=== PATIENT | female | born 1955 | race Caucasian/White ===

== ENCOUNTER 2017-03-05 12:13 | Emergency (ER) | payer BC ==
[2017-03-05 12:44] VITALS: BP 124/74; PULSE 57; TEMP 98.4; BMI 22.8
--- NOTE | 2017-03-05 13:17 | PDOC ---
History of Present Illness - General Chief Complaint: Injury Stated Complaint: LEFT HAND CAUGHT IN GARAGE DOOR Time Seen by Provider: 03/05/17 12:24 - History of Present Illness Initial Comments: 03/05/17 16:10 Complaint: Hand injury History of present illness: Patient caught her left hand in a door. Complains of pain over the dorsum of the hand Review of systems: Denies any distal numbness tingling or limited motion of the fingers. Denies any other injuries. Past medical history: Noncontributory for this injury Physical exam: There is mild swelling of the dorsum of the hand, without any appreciable deformity. Pulses are full. Capillary refill is intact to all 5 digits. There is no sensory deficit to the digits and no complaint of numbness or tingling. There is full tendon function in both flexion and extension of the MCP, PIP, and DIPJs resistance. Superficial abrasions medial to the first MCP J and proximal to the fifth digit X-ray: Negative for fracture Plan: Wound scrubbed and irrigated with normal saline, dressed with bacitracin. No deep laceration or puncture was observed. Wound care discussed and follow-up with primary physician. Patient fully ambulatory and in no pain or other distress upon discharge with her to follow-up as directed Past History - Past Medical History Allergies/Adverse Reactions: Allergies Allergy/AdvReac Type Severity Reaction Status Date / Time No Known Allergies Allergy Unverified 03/05/17 12:25 Home Medications: Ambulatory Orders Aspirin [ASA -] 81 mg PO DAILY 03/05/17 Atenolol [Tenormin -] 12.5 mg PO DAILY 03/05/17 Atenolol [Tenormin] 25 mg PO DAILY 03/05/17 Atorvastatin Calcium [Lipitor] 10 mg PO DAILY 03/05/17 Vortioxetine Hydrobromide [Trintellix] 10 mg PO DAILY 03/05/17 HTN: Yes Hypercholesterolemia: Yes Psychiatric Problems: Yes (ANXIETY) - Psycho/Social/Smoking Cessation Hx Anxiety: Yes Suicidal Ideation: No Smoking History: Never smoked Hx Alcohol Use: No Drug/Substance Use Hx: No Substance Use Type: Alcohol *Physical Exam - Vital Signs Last Vital Signs Temp Pulse Resp BP Pulse Ox 98.4 F 57 L 16 124/74 100 03/05/17 12:16 03/05/17 12:16 03/05/17 12:16 03/05/17 12:16 03/05/17 12:16 ED Treatment Course - RADIOLOGY Radiology Studies Ordered: Category Date Time Status HAND- LEFT [RAD] Stat Radiology 03/05/17 12:24 Taken *DC/Admit/Observation/Transfer Diagnosis at time of Disposition: Multiple abrasions Contusion, hand Qualifiers: Encounter type: initial encounter Laterality: left Qualified Code(s): S60.222A - Contusion of left hand, initial encounter - Discharge Dispostion Disposition: HOME Condition at time of disposition: Improved Admit: No - Referrals Referrals: Yanick Olivera MD [Staff Physician] - 1 week - Patient Instructions Printed Discharge Instructions: Contusion, DI for Abrasion
[2017-03-05] MEDS ORDERED: DIPHTH,PERTUSS(ACELL),TET 0.5 ML DISP.SYRIN IM ONE (13:44)
== END 2017-03-05 14:09 | disposition home or self-care (01) ==
LOC: FER 12:13
PROC: 3E0234Z Introduction of Serum, Toxoid and Vaccine into Muscle, Percutaneous Approach (ICD-10-PCS; principal; 2017-03-05)
DX: S60.222A Contusion of left hand, initial encounter (principal); T14.8 Other injury of unspecified body region; W20.8XXA Other cause of strike by thrown, projected or falling object, initial encounter; Y93.89 Activity, other specified; Y92.89 Other specified places as the place of occurrence of the external cause; I10 Essential (primary) hypertension; F41.9 Anxiety disorder, unspecified; E78.00 Pure hypercholesterolemia, unspecified
CPT/HCPCS: 73130-TC-LT; 90715; 99282-25

== ENCOUNTER 2024-01-14 07:29 | Day surgery (SDC) | payer OTHER, BC ==
[2024-01-09 11:28] VITALS: BMI 23.3
[2024-01-14] MEDS ORDERED: MIDAZOLAM HCL 2 MG/2 ML SINGLE DOSE VIAL ONE ×2 (08:27→09:09)
[2024-01-14] MEDS ORDERED: LIDOCAINE HCL 2% (20ML MULTI-DOSE VIAL) ONE (08:38)
[2024-01-14 09:52] VITALS: RESP 20; TEMP 97.4
[2024-01-14 10:06] VITALS: BP 130/78; PULSE 80
== END 2024-01-14 10:15 | disposition home or self-care (01) ==
LOC: FASU 07:29
PROVIDERS: ATTEND Orthopaedic Surgery Hand Surgery
PROC: 0LN70ZZ Release Right Hand Tendon, Open Approach (ICD-10-PCS; principal; 2024-01-14 09:15)
DX: M65.331 Trigger finger, right middle finger (principal)

== ENCOUNTER 2025-01-09 17:26 | Emergency (ER) | payer OTHER, BC ==
[2025-01-09 17:56] VITALS: BP 158/79; PULSE 70; RESP 18; TEMP 97; BMI 23.3
== END 2025-01-09 18:20 | disposition home or self-care (01) ==
LOC: FER 17:26
DX: S86.911A Strain of unspecified muscle(s) and tendon(s) at lower leg level, right leg, initial encounter (principal); X50.9XXA Other and unspecified overexertion or strenuous movements or postures, initial encounter
CPT/HCPCS: 73562-TC-RT-FY; 99283-25